=== PATIENT | female | born 1955 | race Caucasian/White ===

== ENCOUNTER 2022-02-28 10:39 | Inpatient (IN) | payer OTHER ==
[~2022-02-28] VITALS: Ht 157.5 cm; Wt 63.5 kg
--- NOTE | 2022-02-28 10:51 | NUR ---
PT LILIAN DRAW SHEET TO BED
[2022-02-28] MEDS ORDERED: ASPIRIN 325 MG TAB PO ONE (11:00)
[2022-02-28 11:01] VITALS: BP 133/47
--- NOTE | 2022-02-28 11:30 | NUR ---
lab at bedside.
[2022-02-28 11:40] LABS: BASOPHILS # (AUTO) 0.1 K/uL (0.00-0.22); BASOPHILS % (AUTO) 0.9 % (0.0-2.0); EOSINOPHILS # (AUTO) 0.3 K/uL (0-0.4); EOSINOPHILS % (AUTO) 3.9 % (0.0-4.0); HEMATOCRIT 32.8 % (36-48); HEMOGLOBIN 10.6 g/dL (12.0-16.0); LYMPHOCYTES # (AUTO) 1.1 K/uL (2.5-16.5); MEAN CORPUSCULAR HEMOGLOBIN 30 pg (27-31); MEAN CORPUSCULAR HGB CONC 32 g/dL (33-37); MEAN CORPUSCULAR VOLUME 92.7 fL (80-94); MONOCYTES # (AUTO) 0.5 K/uL (0.8-1.0); NEUTROPHILS # (AUTO) 5.6 K/uL (1.8-7.7); NEUTROPHILS % (AUTO) 74.2 % (42.2-75.2); PLATELET COUNT (AUTO) 273 K/uL (140-450); RED BLOOD CELL COUNT(AUTO) 3.54 MIL/uL (4.20-5.40); RED CELL DISTRIBUTION WIDTH 15.8 % (11.6-13.7); WHITE BLOOD COUNT (AUTO) 7.6 K/uL (4.8-10.8)
--- NOTE | 2022-02-28 11:49 | NUR ---
Patient was assisted to the restroom.
--- NOTE | 2022-02-28 12:08 | NUR ---
X-Ray at bedside.
--- NOTE | 2022-02-28 12:11 | NUR ---
66 y/o female biba for complains of chest pain x today. Upon assessment, patient denies any chest pain, pain, SOB or discomfort. Per EMS, patient was given Nitro and ASA en route to hospital. Patient is [id number]. Medical History: DM, HTN, HLD NKDA
[2022-02-28 12:12] LABS: CHOL/HDL RATIO 2.2 (1-4.5); HDL CHOLESTEROL 44 mg/dL (40-60); LDL (CALC) 28 mg/dL (60-100); TRIGLYCERIDES 120 mg/dL (30-150)
[2022-02-28 12:16] LABS: ALBUMIN 3.2 g/dL (3.4-5.0); CARBON DIOXIDE 24.3 mmol/L (21-32); CREATININE 0.8 mg/dL (0.6-1.3); POTASSIUM 4.3 mmol/L (3.5-5.1); TOTAL BILIRUBIN 0.6 mg/dL (0.0-1.0)
[2022-02-28] MEDS ORDERED: MORPHINE SULFATE 4 MG/ML SYR IVP ONE (13:15)
[2022-02-28] MEDS ORDERED: NITROGLYCERIN 2% 1 GM PKT TP ONE (13:15)
[2022-02-28] MEDS ORDERED: ENOXAPARIN 60 MG/0.6 ML SYR SUBQ ONE (13:15)
--- NOTE | 2022-02-28 13:32 | NUR ---
Patient is asleep, laying in bed. Patient has no signs of distress or pain. Patient has needs met by staff. Vital Signs stable. Respirations even and unlabored.
[2022-02-28] MEDS ORDERED: MORPHINE SULFATE 2 MG/ML SYR IVP PRN (14:20)
[2022-02-28] MEDS ORDERED: INSULIN LISPRO SLIDING SCALE 100 UNITS/ML VIAL SUBQ PRN (14:25)
[2022-02-28] MEDS ORDERED: DEXTROSE 50% 50 ML SYR IVP PRN (14:25)
--- NOTE | 2022-02-28 15:56 | NUR ---
Spoke to Sun at [facility] to inform her of patient being admitted to the hospital.
[2022-02-28] MEDS: BLOOD GLUCOSE MONITORING 1 DEV DEV FS SCH ×2 (16:51→21:42)
--- NOTE | 2022-02-28 17:10 | NUR ---
Patient was assisted to the restroom.
--- NOTE | 2022-02-28 17:18 | NUR ---
Dr. Ramirez at bedside evaluating patient.
--- NOTE | 2022-02-28 17:45 | NUR ---
Patient was offered her dinner tray, patient does not want to eat at this time. Dinner tray left at bedside.
--- NOTE | 2022-02-28 19:20 | NUR ---
Meño hernandes in [facility] - 02/28/22 at 1925 by NITA Patient report given to OSEI Artis. Transfer of care at this time.
--- NOTE | 2022-02-28 19:20 | NUR ---
Patient report given to OSEI Dasilva. Transfer of care at this time.
--- NOTE | 2022-02-28 19:28 | NUR ---
pt appears to be resting. eyes are closed, opens to sound. equal rise and fall of chest wall. all needs met a this time. bed locked in lowest position. side rails x2 for saftey.
--- NOTE | 2022-02-28 20:33 | NUR ---
Patient will be admitted to [facility]. Admited to tele. Will go to [id number]. Belongings list completed. Report to vandana ferro.
[2022-02-28] MEDS ORDERED: CLONIDINE HYDROCHLORIDE 0.1 MG TAB PO PRN (20:40)
[2022-02-28] MEDS: MIRTAZAPINE 15 MG TAB PO SCH (21:42)
[2022-02-28] MEDS: METOPROLOL 25 MG TAB PO SCH (21:42)
[2022-02-28] MEDS: ENOXAPARIN 60 MG/0.6 ML SYR SUBQ SCH (21:44)
[2022-03-01 04:00] VITALS: BP 141/56
[2022-03-01 05:55] LABS: BASOPHILS # (AUTO) 0.1 K/uL (0.00-0.22); EOSINOPHILS # (AUTO) 0.5 K/uL (0-0.4); EOSINOPHILS % (AUTO) 6.3 % (0.0-4.0); HEMATOCRIT 29.6 % (36-48); HEMOGLOBIN 9.9 g/dL (12.0-16.0); LYMPHOCYTES # (AUTO) 1.7 K/uL (2.5-16.5); MEAN CORPUSCULAR HEMOGLOBIN 31 pg (27-31); MEAN CORPUSCULAR HGB CONC 34 g/dL (33-37); MONOCYTES # (AUTO) 0.6 K/uL (0.8-1.0); MONOCYTES % (AUTO) 6.9 % (1.7-9.3); NEUTROPHILS # (AUTO) 5.3 K/uL (1.8-7.7); NEUTROPHILS % (AUTO) 64.8 % (42.2-75.2); PLATELET COUNT (AUTO) 236 K/uL (140-450); RED BLOOD CELL COUNT(AUTO) 3.22 MIL/uL (4.20-5.40); WHITE BLOOD COUNT (AUTO) 8.3 K/uL (4.8-10.8)
[2022-03-01 06:22] LABS: ALBUMIN 3.1 g/dL (3.4-5.0); ANION GAP 12.6 (8-16); CARBON DIOXIDE 26.5 mmol/L (21-32); CREATININE 0.7 mg/dL (0.6-1.3); MAGNESIUM 1.8 mg/dL (1.8-2.4); PHOSPHORUS 4.2 mg/dL (2.5-4.9); POTASSIUM 4.1 mmol/L (3.5-5.1); TOTAL BILIRUBIN 0.6 mg/dL (0.0-1.0)
[2022-03-01] MEDS: BLOOD GLUCOSE MONITORING 1 DEV DEV FS SCH ×4 (06:29→21:39)
--- NOTE | 2022-03-01 07:25 | NUR ---
RECEIVED REPORT FROM SUPERVISOR [employer] NURSE FOR CONTINUITY OF CARE. PT ASLEEP IN BED. BREATHING SYMMETRICAL ON ROOM AIR. FLACC O. RAC 22G ON SALINE LOCK. CALL LIGHT WITHIN REACH. ALL SAFETY MEASURES IN PLACE.
[2022-03-01 08:00] VITALS: BP 159/45
[2022-03-01] MEDS: CLOPIDOGREL 75 MG TAB PO SCH (09:49)
[2022-03-01] MEDS: amLODIPine 5 MG TAB PO SCH (09:49)
[2022-03-01] MEDS: METOPROLOL 25 MG TAB PO SCH ×2 (09:49→21:00)
[2022-03-01] MEDS: LOSARTAN 50 MG TAB PO SCH (09:49)
[2022-03-01] MEDS: ATORVASTATIN 20 MG TAB PO SCH (09:50)
[2022-03-01] MEDS: ASPIRIN 81 MG TAB.CHEW PO SCH (09:50)
[2022-03-01] MEDS: ENOXAPARIN 60 MG/0.6 ML SYR SUBQ SCH ×2 (09:50→21:43)
--- NOTE | 2022-03-01 09:51 | NUR ---
PATIENT HAS BEEN SCREENED AND CATEGORIZED MODERATE NUTRITION RISK. PATIENT WILL BE SEEN WITHIN 3-5 DAYS OF ADMISSION. / [address]ISE [address]
--- NOTE | 2022-03-01 09:59 | NUR ---
SCHEDULED AM MEDICATIONS GIVEN ORDERED.
[2022-03-01 12:00] VITALS: BP 95/37
--- NOTE | 2022-03-01 12:00 | NUR ---
ACCUCHECK DONE. ENCOURAGED PT TO EAT LUNCH/DRINK FLUIDS.
--- NOTE | 2022-03-01 14:09 | NUR ---
PT PULLED OUT IV LINE. OLD IV LINE NOTED BLEEDING, PRESSURE AND GAUZE APPLIED TO STOP BLEEDING. DENIES PAIN. PT NOTED CONFUSED
--- NOTE | 2022-03-01 14:16 | NUR ---
INSERTED ANOTHER IV LINE ON LEFT FOREARM 24G, NO S/SX OF INFILTRATION NOTED. ENCOURAGED NOT TO PULL OUT. RISK AND BENEFITS EXPLAINED
[2022-03-01] MEDS ORDERED: MIRT-33 PO (15:20)
[2022-03-01] MEDS ORDERED: AMLO-3 PO (15:20)
[2022-03-01] MEDS ORDERED: APIX5TAB PO (15:20)
[2022-03-01] MEDS ORDERED: HUMSLIDE SUBQ (15:20)
[2022-03-01] MEDS ORDERED: LOSA50TA1 PO (15:20)
[2022-03-01] MEDS ORDERED: ATOR20TA40 PO (15:20)
[2022-03-01] MEDS ORDERED: ASPI81CT95 PO (15:21)
[2022-03-01] MEDS ORDERED: CLOP75TA55 PO (15:26)
[2022-03-01 15:51] VITALS: BP 95/37
[2022-03-01 16:00] VITALS: BP 122/41
--- NOTE | 2022-03-01 16:10 | NUR ---
DC PLANNIN YRS OLD FEMALE PATIENT WAS ADMITTED FROM [facility] FOR RECENT STROKE. PATIENT HAS A HX HTN, DM AND HLD. PATIENT HAS NO FURTHER CHEST PAIN EVALUATED WITH DR LIVINGSTON SUPERVISOR [employer]S RECOMMENDED PT WILL NEED TO RECOVER FROM HER STROKE PRIOR TO INTERVENTION FOR HER CAD. DC TO RETURN TO [facility]. FAXED ALL PAPER WORK TO [facility] [phone] . CM TO FOLLOW Addendum: 03/01/22 at 1622 by Luisa Sullivan RN DC PLANNING: CALLED [facility] SPOKE WITH MIR TOLENTINO STATED WILL REVIEW IT AND CALL BACK CM TO FOLLOW Addendum: 03/02/22 at 1211 by Luisa Sullivan RN DC PLANNING: RECEIVED A CALL FROM [facility] SPOKE WITH KARIME REQUESTING THE SUPERVISOR [employer] PERMISSION FOR THE MET LEVEL FOR THERAPY. CALLED DR LIVINGSTON DISCUSSED THE REQUEST HE RECOMMENDED ACTIVITY TOLERATED. CALLED KARIME AND NOTIFIED HER THE SUPERVISOR [employer] RECOMMENDATION, HOWEVER REQUESTING MORE SPECIFIC ORDER. CM SUGGESTING PEER TO PEER TO BE DONE AND PROVIDE DR LIVINGSTON'S NUMBER TO HER TO GIVE IT TO [facility] BAILIFF DR DURAN. RECEIVED A CALL FROM [facility] STATED [facility] IS RESPONSIBLE FOR THE AUTH. CALLED [facility] ,SPOKE WITH KARINA STATED WILL REVIEW AND CALL BACK. CM TO FOLLOW Addendum: 03/02/22 at 1513 by Luisa Sullivan RN DC PLANNING: RECEIVED A CALL FROM KARINA AT [facility] PROVIDE THE AUTH FOR CASA FERNANDA [id number] AND FOR TRANSPORT [id number]. CALLED [facility] AND PROVIDE THE AUTH TO JACK ADMISSION PER KARIME HER BAILIFF DIDN'T REACH OUT DR LIVINGSTON, WILL TRY IT AGAIN AND CALL BACK. CM TO FOLLOW Addendum: 03/02/22 at 1643 by Luisa Sullivan RN DC PLANNING: RECEIVED A CALL FROM JACK AT [facility] STATED PT CAN GO TO ROOM 1107A UNDER THE CARE OF DR RAMOS # TO GIVE REPORT [phone] [phone] ARRANGED TRANSPORT WITH [facility] WHEEL ALIGNMENT MECHANIC TIME 6PM. NOTIFIED ONI FRANZ
--- NOTE | 2022-03-01 17:10 | NUR ---
NEPHEW AT BEDSIDE VISITING. PT AWAKE IN BED. NO SOB NOTED. NO C/O PAIN AT THIS TIME
--- NOTE | 2022-03-01 19:40 | NUR ---
ENDORSED PT TO COURTROOM DEPUTY OR CALENDAR CLERK NURSE FOR CONTINUITY OF CARE
--- NOTE | 2022-03-01 19:41 | NUR ---
RECEIVED SHIFT REPORT FROM TIGRE RN. PATIENT WAS STABLE AT THE BEGINNING OF THE SHIFT. PATIENT WAS IN BED BREATHING ROOM AIR WITH LEVELS EVEN CHEST RISING AND FALLING UNLABORED. PATIENT DENIED ANY PAIN/DISCOMFORT AT THIS TIME. PATIENT WAS NOT ABLE TO EXPLAIN WHY SHE IS IN THE HOSPITAL. PATIENT HAD TWO SIDE RAILS UP FOR SAFETY AND COMFORT. BED WAS AT THE LOWEST LEVEL. PATIENT IS WAS ABLE TO USE THE RESTROOM WITH ASSISTANCE TO GO TO THE RESTROOM WITHOUT INCIDENT. CALL LIGHT WITHIN REACH FOR ASSISTANCE. NURSING ENCOURAGED PATIENT TO USE THE CALL LIGHT FOR ALL NEEDS AND ASSISTANCE. PATIENT UNDERSTOOD AND AGREED. [email or web address]
[2022-03-01 20:00] VITALS: BP 133/57
[2022-03-01] MEDS: MIRTAZAPINE 15 MG TAB PO SCH (21:40)
--- NOTE | 2022-03-01 21:50 | NUR ---
PATIENT WAS NOTED OUT OF THE BED TO GO TO THE RESTROOM UNASSISTED UNTIL NURSING NOTED HER OUT OF BED. PATIENT WAS GUIDED BACK TO BED. GIVEN EDUCATION ON USING THE CALL LIGHT FOR ASSISTANCE AND HER SAFETY. PATIENT AGREED. [email or web address]
--- NOTE | 2022-03-01 23:05 | NUR ---
PATIENT COMPLAINED OF LOOSE STOOL AND WAS NOTED IN THE BATHROOM UNASSISTED. NURSING WALKED HER BACK TO BED AFTER CLEANING HER AND REEDUCATING ON THE IMPORTANCE OF THE CALL LIGHT BECAUSE OF POTENTIAL FALLS. NURSING WILL FREQUENT THE ROOM BECAUSE OF POSSIBLE CONFUSION AND LANGUAGE BARRIERS. [email or web address]
[2022-03-02] VITALS: BP 140/56
--- NOTE | 2022-03-02 01:13 | NUR ---
PATIENT IN BED ASLEEP. BEDSIDE COMMODE WAS PLACED NEXT TO HER BED TO PREVENT MAKE HER TRIP TO USE THE RESTROOM SHORTER. SIDE RAILS UP X 3 FOR SAFETY AND COMFORT. NURSING PUT BACK THE TELE MONITOR BECAUSE PATIENT CONTINUES TO REMOVE THE LEADS. NURSING WILL FREQUENT THIS ROOM FOR ANTICIPATED NEEDS. [email or web address]
--- NOTE | 2022-03-02 03:16 | NUR ---
PATIENT NOTED IN BED ASLEEP. PATIENT IN ROOM AIR. BREATHING NOTED EVEN AND UNLABORED. NO COMPLAINTS OF PAIN AT THIS TIME. SIDE RAILS UP X2. CALL LIGHT WITHIN REACH FOR ASSISTANCE. [email or web address]
[2022-03-02 04:00] VITALS: BP 143/55
--- NOTE | 2022-03-02 06:00 | NUR ---
PATIENT NOTED IN BED ASLEEP. PATIENT IN ROOM AIR. BREATHING NOTED EVEN AND UNLABORED. NO COMPLAINTS OF PAIN AT THIS TIME. SIDE RAILS UP X3. NO MORE EPISODES OF LOOSE STOOL. NO NOTED NEW ORDERS FROM ANCHOR TACKER AFTER NOTIFICATION. CALL LIGHT WITHIN REACH FOR ASSISTANCE. [email or web address]
--- NOTE | 2022-03-02 06:31 | NUR ---
WILL ENDORSE NEW ORDERS TO ON COMING RN. [email or web address]
--- NOTE | 2022-03-02 07:30 | NUR ---
REPORT RECEIVED FROM NIGHTSMDFT. PT ASLEEP. CHEST RISING AND FALLING. IN NO DISTRESS. ON RA. SAFETY MEASURES IN PLACE.
[2022-03-02] MEDS: BLOOD GLUCOSE MONITORING 1 DEV DEV FS SCH ×3 (07:31→16:30)
--- NOTE | 2022-03-02 07:35 | NUR ---
GAVE SHIFT REPORT TO EMMY RN, PATIENT WAS STABLE AT THE SHIFT CHANGE. IN FORMED AM NURSE OF THE NEW ORDERS AND TO PLEASE FOLLOW UP. [email or web address]
[2022-03-02 08:00] VITALS: BP 117/43
[2022-03-02 08:01] VITALS: BP 147/45
[2022-03-02 08:50] LABS: BASOPHILS # (AUTO) 0.1 K/uL (0.00-0.22); BASOPHILS % (AUTO) 0.5 % (0.0-2.0); EOSINOPHILS # (AUTO) 0.1 K/uL (0-0.4); EOSINOPHILS % (AUTO) 0.8 % (0.0-4.0); HEMOGLOBIN 8.5 g/dL (12.0-16.0); LYMPHOCYTES # (AUTO) 1.4 K/uL (2.5-16.5); MEAN CORPUSCULAR HEMOGLOBIN 30 pg (27-31); MEAN CORPUSCULAR HGB CONC 33 g/dL (33-37); MEAN CORPUSCULAR VOLUME 92.1 fL (80-94); MONOCYTES # (AUTO) 0.6 K/uL (0.8-1.0); MONOCYTES % (AUTO) 5.5 % (1.7-9.3); NEUTROPHILS # (AUTO) 9.4 K/uL (1.8-7.7); NEUTROPHILS % (AUTO) 81.2 % (42.2-75.2); PLATELET COUNT (AUTO) 221 K/uL (140-450); RED BLOOD CELL COUNT(AUTO) 2.82 MIL/uL (4.20-5.40); RED CELL DISTRIBUTION WIDTH 16.1 % (11.6-13.7); WHITE BLOOD COUNT (AUTO) 11.6 K/uL (4.8-10.8)
[2022-03-02] MEDS: METOPROLOL 25 MG TAB PO SCH (09:00)
--- NOTE | 2022-03-02 09:00 | NUR ---
PT AWAKE AND ALERT. SANDY NOTE WITH REDNESS, WARMTH AND SWELLING. CONTACTED MD. AWAITING RESPONSE. BREAKFAST AT BEDSIDE. PT WITH NO APPETITE. STAFF DEVELOPMENT COORDINATOR RN AT BEDSIDE ENCOURAGING INTAKE OF FOOD. PT IN NO DISTRESS. ON RA. NEEDS ALL MET AT THSI TIME. SAFETY MEASURES IN PLACE.
[2022-03-02] MEDS: ENOXAPARIN 60 MG/0.6 ML SYR SUBQ SCH (09:34)
[2022-03-02] MEDS: amLODIPine 5 MG TAB PO SCH (09:36)
[2022-03-02] MEDS: ASPIRIN 81 MG TAB.CHEW PO SCH (09:36)
[2022-03-02] MEDS: CLOPIDOGREL 75 MG TAB PO SCH (09:37)
[2022-03-02] MEDS: ATORVASTATIN 20 MG TAB PO SCH (09:37)
[2022-03-02] MEDS: LOSARTAN 50 MG TAB PO SCH (09:37)
[2022-03-02 12:00] VITALS: BP 117/43
--- NOTE | 2022-03-02 15:16 | NUR ---
P.T. NOTES P.T. EVAL COMPLETED; REFER TO EVAL FOR DETAILS.
[2022-03-02 16:00] VITALS: BP 118/36
--- NOTE | 2022-03-02 18:02 | NUR ---
CONTACTED PT'S DAUGHTER ([id number]) WITH NO PICKUP. VOICEMAIL LEFT STATING PT WILL BE GOING TO [facility]. CONTACTED [facility] AND STATES THEY WILL GIVE A CALL BACK, HOWEVER, REPORT WAS ALREADY GIVEN TUESDAY. PT IN NO DISTRESS. NO IV. FACESHEET AND DISCHARGE INSTRUCTIONS GIVEN TO TRANSPORTATION. PT TRANSPORTED OUT VIA GURNEY.
--- NOTE | 2022-03-02 18:28 | NUR ---
PHONECALL RETURNED FROM [facility]. REPORT GIVEN TO
[2022-03-02] MEDS ORDERED: APIXABAN 2.5 MG TAB PO SCH (21:00)
== END 2022-03-02 18:05 | DRG 190 ==
LOC: MED 10:39 → MTU 14:22 → MMU 19:33
PROVIDERS: ADMIT Internal Medicine; ATTEND Internal Medicine
DX: I21.4 Non-ST elevation (NSTEMI) myocardial infarction (principal); E44.1 Mild protein-calorie malnutrition; I10 Essential (primary) hypertension; I25.10 Atherosclerotic heart disease of native coronary artery without angina pectoris; E78.5 Hyperlipidemia, unspecified; Z20.822 Contact with and (suspected) exposure to COVID-19; Z68.25 Body mass index [BMI] 25.0-25.9, adult
CPT/HCPCS: 36415; 71045; 80053; 82948; 83735; 83880; 84100; 84484; 85025; 85379; 87081; 93005; 96372; 96374; 97112; 97116; 99291; J1650; J1815; J2270; Q0092